=== PATIENT | male | born 1945 | race Caucasian/White ===

== ENCOUNTER 2017-03-01 06:51 | Emergency (ER) | payer MEDICARE ==
[2017-03-01 06:59] LABS: Urine Bilirubin Negative (NEGATIVE); Urine Blood 25 /ul (NEGATIVE); Urine Ketone Negative (NEGATIVE); Urine Nitrite Negative (NEGATIVE); Urine Protein 30 mg/dL (NEGATIVE); Urine Urobilinogen Normal (NORMAL)
[2017-03-01 07:00] VITALS: BP 138/74
[2017-03-01 07:06] LABS: Urine Appearance Clear; Urine Bacteria TRACE; Urine Color Yellow
[2017-03-01] MEDS ORDERED: CIPROFLOXACIN HCL 250 MG TABLET PO ONE (07:25)
[2017-03-01] MEDS ORDERED: CIPROFLOXACIN HCL 250 MG TABLET ONE (07:30)
--- NOTE | 2017-03-01 07:38 | ERNOTE ---
ER Male HPI Date of Service: 03/01/17 Stated Complaint: FREQUENT URINATION Time Seen by Provider: 03/01/17 07:16 Source: patient Immunizations: IMMUNIZATION HX Immunizations Up to Date Yes History of Influenza Vaccine Yes Allergies/Adverse Reactions: Allergies naproxen Allergy (Verified 03/01/17 07:00) Home Medications: HOME MEDICATIONS Aspirin 81 mg PO DAILY 03/01/17 [Last Taken Unknown] Ciprofloxacin HCl [Cipro] 500 mg PO BID #20 tab 03/01/17 [Last Taken Unknown] Diltiazem HCl [Diltiazem 12Hr ER] 120 mg PO DAILY 03/01/17 [Last Taken Unknown] Hydrochlorothiazide [Microzide] 12.5 mg PO DAILY 03/01/17 [Last Taken Unknown] LORazepam [Ativan] 1 mg PO PRN 03/01/17 [Last Taken Unknown] Metoprolol Tartrate 50 mg PO DAILY 03/01/17 [Last Taken Unknown] Ramipril 10 mg PO DAILY 03/01/17 [Last Taken Unknown] Rosuvastatin Calcium [Crestor] 40 mg PO HS 03/01/17 [Last Taken Unknown] Zolpidem Tartrate 10 mg PO HS 03/01/17 [Last Taken Unknown] traZODone HCL [Trazodone HCl] 50 mg PO HS 03/01/17 [Last Taken Unknown] - History of Present Illness Narrative: FEVER AND URINARY FREQUENCY TONIGHT. SINCE ABOUT MIDNIGHT HE HAS HAD C/O OF FREQUENCY OF URINE. NO PAIN. NO HX OF UTIS THOUGH HE HAD A PROSTATE INFECTION ONCE 20 YEARS AGO. HE DENIES ANY N & V BUT DID HAVE SOME FEVER AND CHILLS. Review of Systems - Review of Systems Constitutional: Present: See HPI, fever, chills EYE: Present: no symptoms reported ENT: Present: no symptoms reported Respiratory: Present: no symptoms reported Cardiology: Present: no symptoms reported Gastrointestinal/Abdominal: Present: no symptoms reported Genitourinary: Present: frequency Musculoskeletal: Present: no symptoms reported Skin: Present: no symptoms reported Neurological: Present: no symptoms reported Endocrine: Present: no symptoms reported Hematologic/Lymphatic: Present: no symptoms reported Psych: Present: no symptoms reported All Other Systems: All systems neg except as marked - Patient's Past Medical History Patient History - Medical: Anxiety Patient History - Cardiac/Respiratory: Coronary Heart Disease, Hypertension, Hyperlipidemia Patient History - Cancer: Lung Patient History - Surgical Procedures: Cardiac stent - Social History Living Situations: assisted living Smoking Status: Former smoker Patient requests Smoking Cessation Consult: No Initiate information on Smoking Cessation: No Alcohol Use: none Drug Use: none - Immunizations Immunizations Up to Date: Yes History of Influenza Vaccine: Yes Physical Exam - Physical Exam General Appearance: Present: wd/wn, alert, no apparent distress, other - VSS WITH SL ELEVATED TEMP Respiratory: Present: no respiratory distress Cardiovascular/Chest: Present: regular rate, rhythm Gastrointestinal/Abdominal: Present: normal bowel sounds, nontender, nondistended, soft, no organomegaly Back Exam: Present: normal inspection, normal range of motion, no CVA tenderness Neurological Exam: Present: alert, oriented Skin Exam: Present: normal color ED Progress - Results and Orders Patient's Lab Results:: I have reviewed the patient's lab results. Results and Orders: URINE WITH EVIDENCE OF UTI, CULTURE IS PENDING. - Vital Signs Vital Signs: Vital Signs 03/01/17 06:56 Temperature 38.3 C H Pulse Rate 96 Respiratory 20 Rate Blood Pressure 138/74 O2 Sat by Pulse 93 Oximetry - Progress/Reassessment Chief Complaint: Genitourinary Problem Progress:: Unchanged Departure Clinical Impression: UTI (urinary tract infection) Qualifiers: Urinary tract infection type: acute cystitis Hematuria presence: without hematuria Qualified Code(s): N30.00 - Acute cystitis without hematuria - Departure Disposition: Home Follow Up Needed Instructions: Urinary Tract Infection, Adult, [id number] Additional Instructions: DRINK EXTRA FLUIDS. USE TYLENOL FOR FEVER AND CHILLS. IF NOT IMPROVING IN 2 DAYS GET RECHECKED. IF WORSE GET CHECKED SOONER. WE ARE DOING A URINE CULTURE AND IF IT SHOWS A DIFFERENT ANTIBIOTIC WOULD BE BETTER, WE WILL CALL YOU. Referrals: Scot Vee DO [Primary Care Provider] - Prescriptions: Ciprofloxacin HCl [Cipro] 500 mg PO BID #20 tab
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
== END 2017-03-01 07:39 | disposition home or self-care (01) ==
LOC: ER 06:51
DX: N30.00 Acute cystitis without hematuria (principal); Z87.891 Personal history of nicotine dependence; Z95.5 Presence of coronary angioplasty implant and graft; I25.10 Atherosclerotic heart disease of native coronary artery without angina pectoris

== ENCOUNTER 2017-04-29 12:44 | Day surgery (SDC) | payer MEDICARE ==
[~2017-04-29 12:44] MED LIST: METOCLOPRAMIDE HCL 5 MG/ML VIAL IV PRN; MORPHINE SULFATE 2 MG/ML DISP.SYRIN IV PRN; NORMAL SALINE 1,000 ML IV PRN; ONDANSETRON HCL/PF 2 MG/ML VIAL IV PRN; oxyCODONE HCL/ACETAMINOPHEN 1 TAB TABLET PO PRN
--- OUTSIDE RECORDS SUMMARY | 2017-04-29 12:48 | XMS REPORT | Continuity of Care Document ---
:1945 Author Organization [facility] ([facility]) [place] [address] Phone [phone] Care Team Providers Name Role Phone Scot Vee Bradly Primary Care Provider [phone] Source Comments This disclosure is being made pursuant to the Care Everywhere program, applicable federal and state laws, and may not contain all informaitonavailable regarding this patient.[facility] ([facility]) Active Allergies and Adverse Reactions Allergen [...] the tongue every 5 minutes as needed hydrochlorothiazide Take 12.5 mg Active 12.5 mg capsule by mouth daily. aspirin 81 mg EC tablet Take 81 mg by Active mouth daily. LORazepam 1 mg tablet Take 1 tablet 270 tablet 1 Active (1 mg total) 7 by mouth every 8 hours as needed. acetaminophen-codeine Take 1 tablet 60 tablet 0 Active 300-30 mg per tablet by mouth every 7 6 hours as needed. traZODone 50 mg tablet Take 1 tablet 30 tablet 11 Active (50 mg total) 7 by mouth at bedtime. diltiaZEM 120 mg ER Take 1 capsule 90 capsule 3 Active capsule (120 mg total) 7 by mouth daily. tiotropium (SPIRIVA) 18 Use 18 mcg by Active mcg inhalation capsule inhalation daily. albuterol 90 Use 2 Puffs by Active mcg/Actuation inhaler inhalation every 6 hours as needed. SERTraline 50 mg tablet Take 1 tablet 30 tablet 11 Active (50 mg total) 7 by mouth daily. ciprofloxacin HCl 500 Take 1 tablet 20 tablet 0 Active mg tablet (500 mg total) 7 by mouth 2 times daily. zolpiDEM 10 mg tablet Take 1 tablet 90 tablet 3 Active (10 mg total) 7 by mouth at bedtime as needed. zolpiDEM 10 mg tablet Take 1 tablet 90 tablet 1 Discontinued (10 mg total) 6 017 by mouth at bedtime as needed. zolpiDEM 10 mg tablet Take 1 tablet 90 tablet 1 Discontinued (10 mg total) 7 017 by mouth at bedtime as needed. Active Problems Patient Care Coordination Note GOALS [...] Plan outpatient evaluation and work-up CAD in [place] artery 01/11/2015 Hypercholesterolemia without hypertriglyceridemia 12/15/2013 Muscle [...] Recent Encounters Date Type Specialty Providers Description 04/28/2017 Hospital Encounter Radiation Oncology Manolo Segundo, Chief Comp: Patient MD Reported Reason For Visit 04/21/2017 Refill Scot Boudreaux Dx: Insomnia, Primary A, DO unspecified type (Primary Dx) 04/13/2017 Refill Shakira Arredondo Dx: Insomnia, Primary DO unspecified type (Primary Dx) 03/19/2017 Telephone Cherise Syed CMA Chief Comp: Referral Primary 03/13/2017 Office Visit Scot Boudreaux Chief Comp: Patient Primary A, DO Reported Reason For Visit 03/13/2017 Office Visit Scot Boudreaux Dx: Moderate single Primary A, DO current episode of major depressive disorder (Primary Dx) 03/09/2017 Refill Scot Boudreaux Dx: Coronary artery Primary A, DO disease involving [place] coronary artery of [place] heart without angina pectoris (Primary Dx) 02/18/2017 Refill Katya Tristan Dx: Insomnia, Primary PRODUCTION MINER unspecified type (Primary Dx) 01/27/2017 Hospital Encounter Radiation Oncology Manolo Segundo, Chief Comp: Patient MD Reported Reason For Visit Immunizations Name Dates Previously Given Next Due [...] Vital Sign Reading Time Taken Blood Pressure 88/42 03/13/2017 10:52 AM CDT Pulse 68 03/13/2017 10:52 AM CDT Temperature 36.5 C (97.7 F) 03/13/2017 10:52 AM CDT Respiratory Rate 18 03/13/2017 10:52 AM CDT Height 1.77 m (5' 9.69") 07/29/2016 1:52 PM CDT Weight 76.839 kg (169 lb 6.4 oz) 03/13/2017 10:52 AM CDT Body Mass Index 24.53 03/13/2017 10:52 AM CDT Oxygen Saturation 94% 02/05/2016 

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
[2017-04-29 16:46] VITALS: BP 129/69
== END 2017-04-29 12:45 | disposition home or self-care (01) ==
LOC: SUR 12:44
PROVIDERS: ATTEND Urology
PROC: 3E1K88X Irrigation of Genitourinary Tract using Irrigating Substance, Via Natural or Artificial Opening Endoscopic, Diagnostic (ICD-10-PCS; 2017-04-29)
PROC: 0TJB8ZZ Inspection of Bladder, Via Natural or Artificial Opening Endoscopic (ICD-10-PCS; principal; 2017-04-29 13:00)
DX: N42.83 Cyst of prostate (principal); R31.29 Other microscopic hematuria; J44.9 Chronic obstructive pulmonary disease, unspecified; Z87.891 Personal history of nicotine dependence; Z68.25 Body mass index [BMI] 25.0-25.9, adult

== ENCOUNTER 2017-07-10 07:02 | Emergency (ER) | payer MEDICARE ==
[2017-07-10] MEDS ORDERED: NORMAL SALINE 1,000 ML IV ONE (07:41)
[2017-07-10 08:07] LABS: Hematocrit 38.8 % (42.0-52.0); Hemoglobin 13.5 gm/dL (13.5-18.0); Mean Cell Volume 78.5 fl (78-100); Mean Corpuscular Hemoglobin 27.3 pg (27-31); Mean Corpuscular Hgb Conc 34.8 g/dl (32-36); Mean Platelet Volume 8.6 fl (6.0-9.5); Neutrophil # 6.1 K/mm3 (1.3-6.0); Neutrophil % 82.4 % (42-75.0); Platelet Count 242 K/mm3 (150-450); Red Blood Count 4.94 M/mm3 (4.7-6.0); Red Cell Distribution Width 14.7 % (11.5-14.0); White Blood Count 7.4 K/mm3 (4.0-10.5)
[2017-07-10 08:17] LABS: Urine Bilirubin Negative (NEGATIVE); Urine Ketone Negative (NEGATIVE); Urine Nitrite Negative (NEGATIVE); Urine Protein Negative (NEGATIVE); Urine Urobilinogen Normal (NORMAL)
[2017-07-10 08:29] LABS: Urine Appearance Slightly Cloudy; Urine Bacteria None Seen; Urine Blood 5 /ul (NEGATIVE); Urine Color Yellow; Urine RBC 0-5 /hpf (0-5); Urine WBC 0-5 /hpf (0-5)
[2017-07-10 08:43] LABS: Albumin * 3.7 gm/dl (3.4-5.0); Anion Gap 13.5 mmol/L (6.8-13.8); BUN/Creatinine Ratio 8.9 (9.0-21.6); Bilirubin, Total 0.9 mg/dL (0.0-1.1); Ca. Corrected For Albumin 8.6 mg/dL (8.4-10.2); Calcium * 8.7 mg/dL (7.9-10.9); Carbon Dioxide 23.8 mmol/L (24-32.6); Potassium 4.3 mmol/L (3.4-4.6); Total Protein 7.4 gm/dL (6.2-8.2)
--- NOTE | 2017-07-10 09:20 | ERNOTE ---
Abdominal HPI - Narrative Date of Service: 07/10/17 - General Chief Complaint: Constipation Time Seen by Provider: 07/10/17 07:30 Source: patient Exam Limitations: no limitations - Immun/Allergies/Home Medications Immunizatons: IMMUNIZATION HX Immunizations Up to Date Yes History of Influenza Vaccine Yes Allergies/Adverse Reactions: Allergies naproxen Allergy (Mild, Verified 07/10/17 07:11) Hives tramadol Allergy (Mild, Verified 07/10/17 07:11) Hives Home Medications: HOME MEDICATIONS Hydrochlorothiazide [Microzide] 12.5 mg PO DAILY 03/01/17 [Last Taken Unknown] LORazepam [Ativan] 1 mg PO DAILY 03/01/17 [Last Taken Unknown] Metoprolol Tartrate 50 mg PO DAILY 03/01/17 [Last Taken Unknown] Ramipril 10 mg PO DAILY 03/01/17 [Last Taken Unknown] Rosuvastatin Calcium [Crestor] 40 mg PO HS 03/01/17 [Last Taken Unknown] Zolpidem Tartrate 10 mg PO HS PRN 03/01/17 [Last Taken Unknown] traZODone HCL [Trazodone HCl] 50 mg PO HS 03/01/17 [Last Taken Unknown] Albuterol Sulfate [Proair Hfa] 1 puff IH Q4H PRN 04/23/17 [Last Taken Unknown] Aspirin [Aspirin Enteric Coated] 81 mg PO DAILY 04/23/17 [Last Taken Unknown] Diltiazem HCl [Cardizem Cd] 120 mg PO DAILY 04/23/17 [Last Taken Unknown] Finasteride [Proscar] 5 mg PO DAILY 04/23/17 [Last Taken Unknown] Nitroglycerin [Nitrostat] 0.4 mg SL [id number] PRN 04/23/17 [Last Taken Unknown] Tamsulosin HCl [Flomax] 0.4 mg PO DAILY@1800 04/23/17 [Last Taken Unknown] Umeclidinium [place] [Incruse Ellipta] 1 inh IH DAILY 04/23/17 [Last Taken Unknown] Bisacodyl [Dulcolax Suppository] 10 mg RC DAILY PRN #10 supp.rect 07/10/17 [ Last Taken Unknown] Polyethylene Glycol 3350 [Miralax] 17 gm PO DAILY #510 gm 07/10/17 [Last Taken Unknown] - History of Present Illness Narrative: constipation for last several days Timing: constant, getting worse Quality: moderate Activities at Onset: none Modifying Factors - (Improves): Present: other - nothing goives relief Modifying Factors - (Worsens): Present: urinating Associated Symptoms: Present: denies symptoms Prior Abdominal Problems: Present: similar symptoms Prior Treatment: Present: currently on antibiotics Review of Systems - Review of Systems Constitutional: Present: See HPI, malaise EYE: Present: no symptoms reported ENT: Present: no symptoms reported Respiratory: Present: no symptoms reported Cardiology: Present: no symptoms reported Gastrointestinal/Abdominal: Present: no symptoms reported Genitourinary: Present: no symptoms reported Musculoskeletal: Present: no symptoms reported Skin: Present: no symptoms reported Neurological: Present: no symptoms reported Endocrine: Present: no symptoms reported Hematologic/Lymphatic: Present: no symptoms reported Psych: Present: no symptoms reported - Patient's Past Medical History Patient History - Medical: Anxiety, Other Patient History - Cardiac/Respiratory: Coronary Heart Disease, COPD, Hypertension, Hyperlipidemia, Myocardial Infarction Patient History - Cancer: Lung Patient History - Surgical Procedures: Cardiac stent Patient History - Other: None - Family History Mother Family History - Medical: , No pertinent hx Family History - Cardiac/Respiratory: Myocardial Infarction Family History - Cancer: No pertinent family hx Father Family History - Medical: , No pertinent hx Family History - Cardiac/Respiratory: Myocardial Infarction Family History - Cancer: No pertinent family hx - Social History Living Situations: home Abuse History: No History of abuse Psych History: Hx of Anxiety, Current tx/ever been on anti-depressants or anti- anxiety meds Alcohol Use: none Drug Use: none - Immunizations Immunizations Up to Date: Yes History of Influenza Vaccine: Yes Physical Exam - Physical Exam General Appearance: Present: mild distress, anxious Head Exam: Present: normal inspection, no evidence of injury Eye Exam: Normal inspection: bilateral, PERRL: bilateral, EOMI: bilateral Ears, Nose, Throat: Present: normal ENT inspection Neck: Present: normal inspection Respiratory: Present: no respiratory distress, normal breath sounds, no accessory muscle use, chest nontender, lungs clear Cardiovascular/Chest: Present: regular rate, rhythm, no murmur, normal peripheral pulses Peripheral Pulses: N=norm/S=strong/W=weak/B=bound/A=absent: Carotid (R): Normal , Carotid (L): Normal, Radial (R): Normal, Radial (L): Normal, Femoral (R): Normal, Femoral (L): Normal, Dorsalis-pedis (R): Normal, Dorsalis-pedis (L): Normal Gastrointestinal/Abdominal: Present: normal bowel sounds, tenderness, distended Rectal Exam: Present: fecal impaction Male Genitals Exam: Present: normal genitalia, high riding prostate Extremity Exam: Present: normal inspection, non-tender, normal range of motion, no edema Neurological Exam: Present: alert, oriented, normal mood/affect, no motor/ sensory deficits DTR: N=norm/NB=norm/brisk/A=abs/DD=dull/dimin/HC=hyperactive: Bicep (R): Normal , Bicep (L): Normal, Tricep (R): Normal, Tricep (L): Normal, Knee (R): Normal, Knee (L): Normal, Ankle (R): Normal, Ankle (L): Normal Skin Exam: Present: normal color, warm/dry Lymphatic Exam: Present: no adenopathy ED Progress - Vital Signs Vital Signs: Vital Signs 07/10/17 07/10/17 07:08 08:01 Temperature 36.3 C L Pulse Rate 62 64 Respiratory 12 12 Rate Blood Pressure 110/60 112/62 O2 Sat by Pulse 95 96 Oximetry - Progress/Reassessment Chief Complaint: Constipation Departure - Departure Clinical Impression: Constipation Condition: Fair Instructions: Constipation, Adult, [id number] Referrals: Jimmie Sims MD [Primary Care Provider] - Prescriptions: Bisacodyl [Dulcolax Suppository] 10 mg RC DAILY PRN #10 supp.rect PRN Reason: Constipation Polyethylene Glycol 3350 [Miralax] 17 gm PO DAILY #510 gm
[2017-07-10] MEDS ORDERED: MAGNESIUM CITRATE 300 ML BTL ONE (09:39)
[2017-07-10] MEDS ORDERED: MAGNESIUM CITRATE 300 ML BTL PO ONE (09:41)
[2017-07-10 16:35] VITALS: BP 112/68
== END 2017-07-10 11:13 | disposition home or self-care (01) ==
LOC: ER 07:02
DX: K59.00 Constipation, unspecified (principal); I50.9 Heart failure, unspecified; E78.5 Hyperlipidemia, unspecified; J44.9 Chronic obstructive pulmonary disease, unspecified; I10 Essential (primary) hypertension; Z85.118 Personal history of other malignant neoplasm of bronchus and lung; Z95.5 Presence of coronary angioplasty implant and graft; F41.9 Anxiety disorder, unspecified

== ENCOUNTER 2017-09-29 06:30 | Emergency (ER) | payer MEDICARE ==
[2017-09-29 06:38] VITALS: BP 134/69
[2017-09-29] MEDS ORDERED: DEXAMETHASONE SOD PHOSPHATE 10 MG/ML VIAL IM ONE (07:14)
[2017-09-29] MEDS ORDERED: METHYLPREDNISOLONE ACETATE 80 MG/ML VIAL IM ONE (07:14)
[2017-09-29] MEDS ORDERED: KETOROLAC TROMETHAMINE 60 MG/2 ML VIAL IM ONE ×2 (07:14→07:17)
[2017-09-29] MEDS ORDERED: DEXAMETHASONE SOD PHOSPHATE 10 MG/ML VIAL ONE (07:17)
[2017-09-29] MEDS ORDERED: METHYLPREDNISOLONE ACETATE 80 MG/ML VIAL ONE (07:17)
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
== END 2017-09-29 07:55 | disposition home or self-care (01) ==
LOC: ER 06:30
DX: S29.019D Strain of muscle and tendon of unspecified wall of thorax, subsequent encounter (principal); W22.8XXD Striking against or struck by other objects, subsequent encounter; I25.2 Old myocardial infarction; I10 Essential (primary) hypertension; Z87.891 Personal history of nicotine dependence; I50.9 Heart failure, unspecified; J44.9 Chronic obstructive pulmonary disease, unspecified; E78.5 Hyperlipidemia, unspecified; Z85.118 Personal history of other malignant neoplasm of bronchus and lung; Z92.3 Personal history of irradiation; Z95.5 Presence of coronary angioplasty implant and graft

== ENCOUNTER 2017-12-09 20:02 | Emergency (ER) | payer MEDICARE ==
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
[2017-12-09 21:03] LABS: Hematocrit 37.6 % (42.0-52.0); Mean Cell Volume 84.3 fl (78-100); Mean Corpuscular Hemoglobin 29.1 pg (27-31); Mean Corpuscular Hgb Conc 34.6 g/dl (32-36); Mean Platelet Volume 8.7 fl (6.0-9.5); Platelet Count 195 K/mm3 (150-450); Red Blood Count 4.46 M/mm3 (4.7-6.0); Red Cell Distribution Width 13.6 % (11.5-14.0); White Blood Count 7.7 K/mm3 (4.0-10.5)
[2017-12-09 21:16] LABS: Albumin * 3.4 gm/dl (3.4-5.0); Anion Gap 14.3 mmol/L (6.8-13.8); BUN/Creatinine Ratio 17.3 (9.0-21.6); Bilirubin, Total 0.7 mg/dL (0.0-1.1); Ca. Corrected For Albumin 8.8 mg/dL (8.4-10.2); Calcium * 8.6 mg/dL (7.9-10.9); Carbon Dioxide 25.5 mmol/L (24-32.6); Potassium 3.8 mmol/L (3.4-4.6); Total Protein 6.9 gm/dL (6.2-8.2)
[2017-12-09 21:17] LABS: Total Cells Counted 100
[2017-12-09 21:46] LABS: Atypical (Reactive) Lymph 3 % (0-2); Eosinophil 2 % (0-3); Lymphocyte 8 % (20-51); Monocyte 6 % (0-9); Neutrophil 81 % (42-75); Neutrophil # 6.2 K/mm3 (1.3-6.0)
[2017-12-09 21:48] LABS: Platelet Estimate Normal (NORMAL)
[2017-12-09] MEDS ORDERED: DIATRIZOATE MEGLUMINE, SODIUM 30 ML BTL PO ONE (22:43)
[2017-12-10] MEDS ORDERED: hydrOXYzine PAMOATE 25 MG CAPSULE PO ONE (04:20)
[2017-12-10] MEDS ORDERED: hydrOXYzine PAMOATE 25 MG CAPSULE ONE (04:33)
[2017-12-10 05:21] VITALS: BP 150/81
== END 2017-12-10 05:10 | disposition short-term general hospital (02) ==
LOC: ER 20:02
DX: J86.9 Pyothorax without fistula (principal); I25.2 Old myocardial infarction; E78.5 Hyperlipidemia, unspecified; I10 Essential (primary) hypertension; I50.9 Heart failure, unspecified; F41.9 Anxiety disorder, unspecified; J44.9 Chronic obstructive pulmonary disease, unspecified; Z95.5 Presence of coronary angioplasty implant and graft; Z87.891 Personal history of nicotine dependence; Z85.118 Personal history of other malignant neoplasm of bronchus and lung; Z92.3 Personal history of irradiation